=== PATIENT | female | born 1940 | race Caucasian/White ===

== ENCOUNTER 2018-04-02 14:03 | Emergency (ER) | payer MEDICARE, SELFPAY ==
[2018-04-02] VITALS (7 sets, daily range): BP systolic 144–218; BP diastolic 61–103; PULSE 60–68; RESP 11–20; TEMP 36.7; O2SAT 98–100; BMI 23.8
--- NOTE | 2018-04-02 14:12 | DI.RAD.S_ITS ---
PROCEDURE: XR CHEST 1V INDICATIONS: Pre syncopal episode TECHNIQUE: One view of the chest was acquired. COMPARISON: [facility], CR, XR CHEST 2 VIEWS, 06/07/2017, 10:47. FINDINGS: Surgical changes and devices: None. Lungs and pleura: No pleural effusions or pneumothorax. Lungs are clear. Mediastinum: Mediastinal contours appear normal. Heart size is normal. Bones and chest wall: No suspicious bony lesions. Overlying soft tissues appear unremarkable. IMPRESSION: No acute cardiopulmonary findings. Dictated by: Tamara Kuhn M.D. on 04/02/2018 at 14:45 Approved by: Tamara Kuhn M.D. on 04/02/2018 at 14:45
--- NOTE | 2018-04-02 14:13 | DI.CT.S_ITS ---
PROCEDURE: CT HEAD/BRAIN WO CON INDICATIONS: Pre syncopal episode TECHNIQUE: Noncontrast 4.5 mm thick angled axial sections acquired from the foramen magnum to the vertex, with coronal and sagittal reformats. For radiation dose reduction, the following was used: automated exposure control, adjustment of mA and/or kV according to patient size. COMPARISON: [facility], CT, CT ANGIO BRAIN AND NECK, 11/30/2016, 11:31. [facility], CT, BRAIN (TPA), 06/08/2016, 19:54. FINDINGS: Image quality: Excellent. CSF spaces: Basal cisterns are patent. No extra-axial fluid collections. The ventricles are symmetric in size and shape. Brain: No intracranial bleeds or masses. There is cerebral volume loss for age, with resultant ventricular and sulcal prominence. There are periventricular and deep white matter chronic small vessel ischemic changes. There is intracranial internal carotid artery atherosclerosis. Skull and face: Calvarium and visualized facial bones appear intact, without suspicious lesions. Sinuses: Visualized sinuses and mastoids are clear. IMPRESSION: 1. No acute intracranial findings. 2. Findings likely associated with chronic microvascular ischemic changes. Dictated by: Tamara Kuhn M.D. on 04/02/2018 at 15:33 Approved by: Tamara Kuhn M.D. on 04/02/2018 at 15:38
[2018-04-02 14:15] LABS: Add Manual Diff / Slide Review NO; Eosinophils Percent Auto 1.5 % (2-4); Hematocrit 42.6 % (36-46); Hemoglobin 14.2 g/dL (12.0-16.0); Mean Corpuscular HGB Conc 33.4 % (30-36); Mean Corpuscular Hemoglobin 29.6 PG (26-34); Mean Corpuscular Volume 88.6 fL (80-100); Monocytes Percent Auto 6.8 % (3-14); Neutrophils Absolute Auto 3600 /uL (3000-5900); Neutrophils Percent Auto 57.7 % (50-75); Platelet Count 236 X10^3/uL (150-400); Red Blood Cell Count 4.81 X10^6/uL (4.0-5.2); Red Cell Distribution Width 14.7 % (11.6-14.8); White Blood Cell Count 6.2 X10^3/uL (4.5-11.0)
--- NOTE | 2018-04-02 14:30 | ED.SYNCOPE ---
HPI - Syncope <ADRIANA Baez - Last Filed: 04/02/18 22:23> General Chief Complaint: Syncope Stated Complaint: Nausea Time Seen by Provider: 04/02/18 14:05 Source: patient Mode of arrival: EMS Limitations: no limitations History of Present Illness HPI narrative: 77-year-old female with history of hypertension is a nonsmoker here for complaint of having a presyncopal episode earlier today. She states that she went into the kitchen to start making lunch when she felt lightheaded and she had to lay down on the floor and she fell as she was going to pass out. She denies any loss of consciousness. She denies any headache no chest pain no shortness of breath. She states that she has been eating and drinking well with no nausea or vomiting until she had the lightheaded incident. She denies any urinary symptoms. She denies any recent illnesses. She also states that she had a strain sensation where she felt like there was squeezing to her bilateral lower extremities. She denies any neurological deficits. She states that the squeezing sensation has come and went a few times since her pre syncopal episode. She denies any discomfort anywhere. complaint: felt faint Related Data Home Medications Medication Instructions Recorded Confirmed atorvastatin 10 mg PO DAILY 04/02/18 04/02/18 cholestyramine-aspartame 4 g PO BID 04/02/18 04/02/18 [Prevalite] losartan 25 mg PO DAILY 04/02/18 04/02/18 metoprolol tartrate 25 mg PO BID 04/02/18 04/02/18 Allergies Allergy/AdvReac Type Severity Reaction Status Date / Time No Known Drug Allergies Allergy Verified 04/02/18 14:50 Review of Systems <ADRIANA Baez - Last Filed: 04/02/18 22:23> Constitutional Denies chills, Denies fever(s), Denies lethargy and Denies weakness Eyes Denies change in vision, Denies eye discharge, Denies irritation and Denies loss of vision ENT Ears, Nose, Mouth, and Throat: Denies change in voice, Denies neck pain and Denies sore throat Cardiovascular Denies chest pain, Denies irregular heart rhythm, Denies lightheadedness, Denies palpitations, Denies dyspnea, Denies dyspnea on exertion and Denies orthopnea Comments: Presyncope Respiratory Denies cough, Denies dyspnea, Denies dyspnea on exertion and Denies wheezing Gastrointestinal Gastrointestinal: Denies abdominal pain, Denies change in bowel habits, Denies diarrhea, Denies nausea and Denies vomiting Genitourinary Denies hematuria, Denies flank pain, Denies urinary incontinence and Denies urinary urgency Musculoskeletal Denies neck pain Comments: [place] sensation of squeezing to bilateral lower extremities Integumentary/Breasts Denies pruritus, Denies erythema, Denies rash and Denies wounds Neurologic Denies confusion, Denies loss of vision and Denies weakness Psychiatric Denies anxiety, Denies confusion, Denies depression, Denies homicidal ideation and Denies suicidal ideation Endocrine Denies palpitations Hematologic/Lymphatic Denies easy bruising Allergic/Immunologic Denies wheezing Exam <ADRIANA Baez - Last Filed: 04/02/18 22:23> Initial Vital Signs Initial Vital Signs: Vital Signs Temperature 98.1 F 04/02/18 14:18 Pulse Rate 68 04/02/18 14:18 Respiratory Rate 20 04/02/18 14:18 Blood Pressure 218/103 H 04/02/18 14:18 Pulse Oximetry 100 04/02/18 14:18 Const General: cooperative and well developed Nutritional Appearance: well nourished Orientation: alert, awake, oriented x3 and not confused HENDC Mouth: oral mucosae normal and moist mucous membranes Eyes Conjunctivae: conjunctivae normal Sclera: sclerae normal Pupils: PERRL EOM: EOM intact bilaterally Resp Effort & Inspection: normal respiratory effort, able to speak in complete sentences, no respiratory distress and no use of accessory muscles Auscultation: clear to auscultation bilaterally, no rales, no rhonchi and no wheezes Cardio Rate: regular rate Rhythm: regular rhythm Heart Sounds: no click, no gallops, no murmurs and no rubs Pulses: normal peripheral pulses GI Inspection: non-distended Palpation: soft, no hepatosplenomegaly, No guarding, No pulsatile mass and No tender Auscultation: normal bowel sounds Skin General: no rashes or lesions noted, No jaundice and No petechiae Neuro General: alert, oriented x3, gait normal and no focal motor deficits Speech: speech normal <Hudson Ware DO - Last Filed: 04/03/18 07:30> Initial Vital Signs Initial Vital Signs: Vital Signs Temperature 98.1 F 04/02/18 14:18 Pulse Rate 68 04/02/18 14:18 Respiratory Rate 20 04/02/18 14:18 Blood Pressure 218/103 H 04/02/18 14:18 Pulse Oximetry 100 04/02/18 14:18 Course <ADRIANA Baez - Last Filed: 04/02/18 22:23> Orders Ordered: Discontinued Medications Sodium Chloride (Normal Saline 0.9%) 1,000 mls @ 150 mls/hr IV CONT SHOSHANA Last Admin: 04/02/18 14:44 Dose: 150 mls/hr Piperacillin/Tazobactam/Dextrose (Zosyn) 3.375 gm in 50 mls @ 100 mls/hr IV NOW ONE Stop: 04/02/18 16:55 Ondansetron HCl (Zofran) 4 mg IV NOW ONE Stop: 04/02/18 14:31 Last Admin: 04/02/18 14:44 Dose: 4 mg Vital Signs - 8 hr 04/02/18 15:28 04/02/18 16:00 04/02/18 16:30 Temperature 98.1 F Pulse Rate 62 60 61 Respiratory Rate 20 11 L 15 Blood Pressure Blood Pressure [Left Arm] 180/93 H 164/76 H 149/61 H Pulse Oximetry 99 99 100 04/02/18 17:00 04/02/18 17:30 04/02/18 18:13 Temperature Pulse Rate 60 61 65 Respiratory Rate 13 13 15 Blood Pressure 149/64 H Blood Pressure [Left Arm] 145/68 H 144/79 H Pulse Oximetry 98 100 98 <Hudson Ware DO - Last Filed: 04/03/18 07:30> Orders Ordered: Discontinued Medications Sodium Chloride (Normal Saline 0.9%) 1,000 mls @ 150 mls/hr IV CONT SHOSHANA Last Admin: 04/02/18 14:44 Dose: 150 mls/hr Piperacillin/Tazobactam/Dextrose (Zosyn) 3.375 gm in 50 mls @ 100 mls/hr IV NOW ONE Stop: 04/02/18 16:55 Ondansetron HCl (Zofran) 4 mg IV NOW ONE Stop: 04/02/18 14:31 Last Admin: 04/02/18 14:44 Dose: 4 mg Vital Signs - 8 hr 04/02/18 15:28 04/02/18 16:00 04/02/18 16:30 Temperature 98.1 F Pulse Rate 62 60 61 Respiratory Rate 20 11 L 15 Blood Pressure Blood Pressure [Left Arm] 180/93 H 164/76 H 149/61 H Pulse Oximetry 99 99 100 04/02/18 17:00 04/02/18 17:30 04/02/18 18:13 Temperature Pulse Rate 60 61 65 Respiratory Rate 13 13 15 Blood Pressure 149/64 H Blood Pressure [Left Arm] 145/68 H 144/79 H Pulse Oximetry 98 100 98 MDM - Syncope <ADRIANA Baez - Last Filed: 04/02/18 22:23> Lab Data Result diagrams: 04/02/18 13:55 04/02/18 13:55 Lab Results 04/02/18 04/02/18 04/02/18 Range/Units 12:55 13:55 13:55 WBC 6.2 (4.5-11.0) X10^3/uL RBC 4.81 (4.0-5.2) X10^6/uL Hgb 14.2 (12.0-16.0) g/dL Hct 42.6 (36-46) % MCV 88.6 (80-100) fL MCH 29.6 (26-34) PG MCHC 33.4 (30-36) % RDW 14.7 (11.6-14.8) % Plt Count 236 (150-400) X10^3/uL Neut % (Auto) 57.7 (50-75) % Lymph % (Auto) 33.0 (25-40) % Ponce % (Auto) 6.8 (3-14) % Eos % (Auto) 1.5 L (2-4) % Baso % (Auto) 1.0 (0-2) % Neut # (Auto) 3600 (3456-2351) /uL PT (10.1-12.7) SECONDS INR (0.9-1.3) Sodium 140 (137-145) mmol/L Potassium 4.5 (3.4-5.1) mmol/L Chloride 101 (98-107) mmol/L Carbon Dioxide 28 (22-32) mmol/L BUN 19 H (7-17) mg/dL Creatinine 1.00 (0.52-1.04) mg/dL Estimated GFR 53.5 L (>60) mL/min BUN/Creatinine Ratio 19.0 (6-22) Glucose 98 (80-110) mg/dL Calcium 9.9 (8.4-10.2) mg/dL Total Bilirubin 0.9 (0.2-1.3) mg/dL AST 38 H (14-36) IU/L ALT 48 (9-52) IU/L Alkaline Phosphatase 90 (38-126) U/L Total Creatine Kinase (30-135) U/L CK-MB (CK-2) CK-MB (CK-2) Rel Index Troponin I (0.01-0.034) ng/mL B-Natriuretic Peptide 80.0 (<100) Total Protein 7.4 (6.3-8.2) g/dL Albumin 4.5 (3.5-5.0) g/dL Globulin 2.9 (1.7-4.1) g/dL Albumin/Globulin Ratio 1.6 (1.0-2.8) 04/02/18 04/02/18 04/02/18 Range/Units 14:25 14:25 16:40 WBC (4.5-11.0) X10^3/uL RBC (4.0-5.2) X10^6/uL Hgb (12.0-16.0) g/dL Hct (36-46) % MCV (80-100) fL MCH (26-34) PG MCHC (30-36) % RDW (11.6-14.8) % Plt Count (150-400) X10^3/uL Neut % (Auto) (50-75) % Lymph % (Auto) (25-40) % Ponce % (Auto) (3-14) % Eos % (Auto) (2-4) % Baso % (Auto) (0-2) % Neut # (Auto) (1707-6666) /uL PT 10.6 (10.1-12.7) SECONDS INR 1.0 (0.9-1.3) Sodium (137-145) mmol/L Potassium (3.4-5.1) mmol/L Chloride (98-107) mmol/L Carbon Dioxide (22-32) mmol/L BUN (7-17) mg/dL Creatinine (0.52-1.04) mg/dL Estimated GFR (>60) mL/min BUN/Creatinine Ratio (6-22) Glucose (80-110) mg/dL Calcium (8.4-10.2) mg/dL Total Bilirubin (0.2-1.3) mg/dL AST (14-36) IU/L ALT (9-52) IU/L Alkaline Phosphatase (38-126) U/L Total Creatine Kinase 60 (30-135) U/L CK-MB (CK-2) TNP CK-MB (CK-2) Rel Index TNP Troponin I < 0.012 < 0.012 (0.01-0.034) ng/mL B-Natriuretic Peptide (<100) Total Protein (6.3-8.2) g/dL Albumin (3.5-5.0) g/dL Globulin (1.7-4.1) g/dL Albumin/Globulin Ratio (1.0-2.8) Point of Care Testing Glucose POC 89 Urine Dip Bedside Urine Glucose Negative Bedside Urine Bilirubin - Negative Bedside Urine Ketone - Negative Urine Specific [place] 1.015 Bedside Urine Occult Blood - Negative Bedside Urine pH 6.5 Bedside Urine Protein - Negative Bedside Urine Urobilinogen 1+ 2mg Bedside Urine Nitrite - Negative Bedside Urine Leukocytes - Negative Esterase Imaging Data Chest x-ray: Radiologist's impression: [address] [address] XRay Report Signed Patient: Leatha Capellan R#: [id number] : 9Acct:[id number] Age/Sex: 77 / FDate of Service: 04/02/18 Loc: ED Accession Number: [id number] Procedure: XR chest 1V Ordering Provider: Wallace Mcqueen PROCEDURE: XR CHEST 1V INDICATIONS: Pre syncopal episode TECHNIQUE: One view of the chest was acquired. COMPARISON: [facility], , XR CHEST 2 VIEWS, 06/07/2017, 10:47. FINDINGS: Surgical changes and devices: None. Lungs and pleura: No pleural effusions or pneumothorax. Lungs are clear. Mediastinum: Mediastinal contours appear normal. Heart size is normal. Bones and chest wall: No suspicious bony lesions. Overlying soft tissues appear unremarkable. IMPRESSION: No acute cardiopulmonary findings. Dictated by: Tamara Kuhn M.D. on 04/02/2018 at 14:45 Approved by: Tamara Kuhn M.D. on 04/02/2018 at 14:45 CT scan - head: Radiologist's impression: [address] [id number] [address] Scan Report Signed Patient: Leatha Capellan HMR#: [id number] : 9Acct:[id number] Age/Sex: 77 / FDate of Service: 04/02/18 Loc: ED Accession Number: [id number] Procedure: CT head/brain wo con Ordering Provider: Wallace Mcqueen PROCEDURE: CT HEAD/BRAIN WO CON INDICATIONS: Pre syncopal episode TECHNIQUE: Noncontrast 4.5 mm thick angled axial sections acquired from the foramen magnum to the vertex, with coronal and sagittal reformats. For radiation dose reduction, the following was used: automated exposure control, adjustment of mA and/or kV according to patient size. COMPARISON: [facility], CT, CT ANGIO BRAIN AND NECK, 11/30/2016, 11:31. [facility], CT, BRAIN (TPA), 06/08/2016, 19:54. FINDINGS: Image quality: Excellent. CSF spaces: Basal cisterns are patent. No extra-axial fluid collections. The ventricles are symmetric in size and shape. Brain: No intracranial bleeds or masses. There is cerebral volume loss for age, with resultant ventricular and sulcal prominence. There are periventricular and deep white matter chronic small vessel ischemic changes. There is intracranial internal carotid artery atherosclerosis. Skull and face: Calvarium and visualized facial bones appear intact, without suspicious lesions. Sinuses: Visualized sinuses and mastoids are clear. IMPRESSION: 1. No acute intracranial findings. 2. Findings likely associated with chronic microvascular ischemic changes. Dictated by: Tamara Kuhn M.D. on 04/02/2018 at 15:33 Approved by: Tamara Kuhn M.D. on 04/02/2018 at 15:38 ECG Data Interpretation: EKG shows normal sinus rhythm with no ST elevation or depression. No ectopy. Ventricular rate is 64. Pr interval 153. QRS duration of 89. QT of 406. MDM Narrative Medical decision making narrative: CT of the head was obtained was negative for any acute findings. Chest x-ray was negative for any acute findings. EKG shows normal sinus rhythm with no set ST elevation or depression. No ectopy. CBC and Chem panel were obtained were unremarkable. Urinalysis was negative for urinary tract infection. Two sets of cardiac enzymes were obtained and were unremarkable. Her symptoms resolved while in the emergency room she was able ambulate to the restroom and back with no complications. Differential between vasovagal syncopal event vs brief episode of spike and hypertension. Vital signs normalized the and were stable. Will have patient follow up with primary care provider in the next couple days for re-evaluation. For any return of symptoms worsening symptoms return to the emergency room. She is encouraged to drink adequate fluids and well balanced diet. <Hudson Ware, DO - Last Filed: 04/03/18 07:30> Lab Data Lab Results 04/02/18 04/02/18 04/02/18 Range/Units 12:55 13:55 13:55 WBC 6.2 (4.5-11.0) X10^3/uL RBC 4.81 (4.0-5.2) X10^6/uL Hgb 14.2 (12.0-16.0) g/dL Hct 42.6 (36-46) % MCV 88.6 (80-100) fL MCH 29.6 (26-34) PG MCHC 33.4 (30-36) % RDW 14.7 (11.6-14.8) % Plt Count 236 (150-400) X10^3/uL Neut % (Auto) 57.7 (50-75) % Lymph % (Auto) 33.0 (25-40) % Ponce % (Auto) 6.8 (3-14) % Eos % (Auto) 1.5 L (2-4) % Baso % (Auto) 1.0 (0-2) % Neut # (Auto) 3600 (1108-3746) /uL PT (10.1-12.7) SECONDS INR (0.9-1.3) Sodium 140 (137-145) mmol/L Potassium 4.5 (3.4-5.1) mmol/L Chloride 101 (98-107) mmol/L Carbon Dioxide 28 (22-32) mmol/L BUN 19 H (7-17) mg/dL Creatinine 1.00 (0.52-1.04) mg/dL Estimated GFR 53.5 L (>60) mL/min BUN/Creatinine Ratio 19.0 (6-22) Glucose 98 (80-110) mg/dL Calcium 9.9 (8.4-10.2) mg/dL Total Bilirubin 0.9 (0.2-1.3) mg/dL AST 38 H (14-36) IU/L ALT 48 (9-52) IU/L Alkaline Phosphatase 90 (38-126) U/L Total Creatine Kinase (30-135) U/L CK-MB (CK-2) CK-MB (CK-2) Rel Index Troponin I (0.01-0.034) ng/mL B-Natriuretic Peptide 80.0 (<100) Total Protein 7.4 (6.3-8.2) g/dL Albumin 4.5 (3.5-5.0) g/dL Globulin 2.9 (1.7-4.1) g/dL Albumin/Globulin Ratio 1.6 (1.0-2.8) 04/02/18 04/02/18 04/02/18 Range/Units 14:25 14:25 16:40 WBC (4.5-11.0) X10^3/uL RBC (4.0-5.2) X10^6/uL Hgb (12.0-16.0) g/dL Hct (36-46) % MCV (80-100) fL MCH (26-34) PG MCHC (30-36) % RDW (11.6-14.8) % Plt Count (150-400) X10^3/uL Neut % (Auto) (50-75) % Lymph % (Auto) (25-40) % Ponce % (Auto) (3-14) % Eos % (Auto) (2-4) % Baso % (Auto) (0-2) % Neut # (Auto) (2027-4643) /uL PT 10.6 (10.1-12.7) SECONDS INR 1.0 (0.9-1.3) Sodium (137-145) mmol/L Potassium (3.4-5.1) mmol/L Chloride (98-107) mmol/L Carbon Dioxide (22-32) mmol/L BUN (7-17) mg/dL Creatinine (0.52-1.04) mg/dL Estimated GFR (>60) mL/min BUN/Creatinine Ratio (6-22) Glucose (80-110) mg/dL Calcium (8.4-10.2) mg/dL Total Bilirubin (0.2-1.3) mg/dL AST (14-36) IU/L ALT (9-52) IU/L Alkaline Phosphatase (38-126) U/L Total Creatine Kinase 60 (30-135) U/L CK-MB (CK-2) TNP CK-MB (CK-2) Rel Index TNP Troponin I < 0.012 < 0.012 (0.01-0.034) ng/mL B-Natriuretic Peptide (<100) Total Protein (6.3-8.2) g/dL Albumin (3.5-5.0) g/dL Globulin (1.7-4.1) g/dL Albumin/Globulin Ratio (1.0-2.8) Point of Care Testing Glucose POC 89 Urine Dip Bedside Urine Glucose Negative Bedside Urine Bilirubin - Negative Bedside Urine Ketone - Negative Urine Specific [place] 1.015 Bedside Urine Occult Blood - Negative Bedside Urine pH 6.5 Bedside Urine Protein - Negative Bedside Urine Urobilinogen 1+ 2mg Bedside Urine Nitrite - Negative Bedside Urine Leukocytes - Negative Esterase Discharge Plan Departure Patient Disposition: Home Clinical Impression: Pre-syncope Discharge Date/Time: 04/02/18 18:14 Interventions: ED Discharge Assessment Last Done: 04/02/18 18:13 Instructions: DI for Syncope in Adults (Fainting) Activity Restrictions/Additional Instructions: Laboratory results and imaging today were unremarkable. Differential between elevated blood pressure and vasovagal response causing her pre syncopal event today. Anterior drinking plenty of fluids and adequate diet. Follow up with her primary care provider the next couple days for re-evaluation. For any return of symptoms or worsening symptoms return to the emergency room. Prescriptions: No Action atorvastatin 10 mg Tablet 10 mg PO DAILY RF: 0 losartan 25 mg Tablet 25 mg PO DAILY RF: 0 cholestyramine-aspartame [Prevalite] 4 gram Powder In Packet 4 g PO BID RF: 0 metoprolol tartrate 25 mg Tablet 25 mg PO BID RF: 0 Referrals: [facility] [Provider Group] <Hudson Ware DO - Last Filed: 04/03/18 07:30> Cosign ED Attending Yonatan Attestation: I was available for consultation during this patient's emergency department encounter
[2018-04-02] MEDS: SODIUM CHLORIDE 0.9% 1,000 ML 150 ML IV (14:44)
[2018-04-02] MEDS: ONDANSETRON 4 MG/2 ML INJ IV (14:44)
[2018-04-02 14:51] LABS: Prothrombin Time 10.6 SECONDS (10.1-12.7)
--- NOTE | 2018-04-02 14:51 | ED_ITS ---
HPI - Syncope <ADRIANA Baez - Last Filed: 04/02/18 22:23> General Chief Complaint: Syncope Stated Complaint: Nausea Time Seen by Provider: 04/02/18 14:05 Source: patient Mode of arrival: EMS Limitations: no limitations History of Present Illness HPI narrative: 77-year-old female with history of hypertension is a nonsmoker here for complaint of having a presyncopal episode earlier today. She states that she went into the kitchen to start making lunch when she felt lightheaded and she had to lay down on the floor and she fell as she was going to pass out. She denies any loss of consciousness. She denies any headache no chest pain no shortness of breath. She states that she has been eating and drinking well with no nausea or vomiting until she had the lightheaded incident. She denies any urinary symptoms. She denies any recent illnesses. She also states that she had a strain sensation where she felt like there was squeezing to her bilateral lower extremities. She denies any neurological deficits. She states that the squeezing sensation has come and went a few times since her pre syncopal episode. She denies any discomfort anywhere. complaint: felt faint Related Data Home Medications Medication Instructions Recorded Confirmed atorvastatin 10 mg PO DAILY 04/02/18 04/02/18 cholestyramine-aspartame 4 g PO BID 04/02/18 04/02/18 [Prevalite] losartan 25 mg PO DAILY 04/02/18 04/02/18 metoprolol tartrate 25 mg PO BID 04/02/18 04/02/18 Allergies Allergy/AdvReac Type Severity Reaction Status Date / Time No Known Drug Allergies Allergy Verified 04/02/18 14:50 Review of Systems <ADRIANA Baez - Last Filed: 04/02/18 22:23> Constitutional Denies chills, Denies fever(s), Denies lethargy and Denies weakness Eyes Denies change in vision, Denies eye discharge, Denies irritation and Denies loss of vision ENT Ears, Nose, Mouth, and Throat: Denies change in voice, Denies neck pain and Denies sore throat Cardiovascular Denies chest pain, Denies irregular heart rhythm, Denies lightheadedness, Denies palpitations, Denies dyspnea, Denies dyspnea on exertion and Denies orthopnea Comments: Presyncope Respiratory Denies cough, Denies dyspnea, Denies dyspnea on exertion and Denies wheezing Gastrointestinal Gastrointestinal: Denies abdominal pain, Denies change in bowel habits, Denies diarrhea, Denies nausea and Denies vomiting Genitourinary Denies hematuria, Denies flank pain, Denies urinary incontinence and Denies urinary urgency Musculoskeletal Denies neck pain Comments: [place] sensation of squeezing to bilateral lower extremities Integumentary/Breasts Denies pruritus, Denies erythema, Denies rash and Denies wounds Neurologic Denies confusion, Denies loss of vision and Denies weakness Psychiatric Denies anxiety, Denies confusion, Denies depression, Denies homicidal ideation and Denies suicidal ideation Endocrine Denies palpitations Hematologic/Lymphatic Denies easy bruising Allergic/Immunologic Denies wheezing Exam <ADRIANA Baez - Last Filed: 04/02/18 22:23> Initial Vital Signs Initial Vital Signs: Vital Signs Temperature 98.1 F 04/02/18 14:18 Pulse Rate 68 04/02/18 14:18 Respiratory Rate 20 04/02/18 14:18 Blood Pressure 218/103 H 04/02/18 14:18 Pulse Oximetry 100 04/02/18 14:18 Const General: cooperative and well developed Nutritional Appearance: well nourished Orientation: alert, awake, oriented x3 and not confused HENVA Mouth: oral mucosae normal and moist mucous membranes Eyes Conjunctivae: conjunctivae normal Sclera: sclerae normal Pupils: PERRL EOM: EOM intact bilaterally Resp Effort & Inspection: normal respiratory effort, able to speak in complete sentences, no respiratory distress and no use of accessory muscles Auscultation: clear to auscultation bilaterally, no rales, no rhonchi and no wheezes Cardio Rate: regular rate Rhythm: regular rhythm Heart Sounds: no click, no gallops, no murmurs and no rubs Pulses: normal peripheral pulses GI Inspection: non-distended Palpation: soft, no hepatosplenomegaly, No guarding, No pulsatile mass and No tender Auscultation: normal bowel sounds Skin General: no rashes or lesions noted, No jaundice and No petechiae Neuro General: alert, oriented x3, gait normal and no focal motor deficits Speech: speech normal <Hudson Ware DO - Last Filed: 04/03/18 07:30> Initial Vital Signs Initial Vital Signs: Vital Signs Temperature 98.1 F 04/02/18 14:18 Pulse Rate 68 04/02/18 14:18 Respiratory Rate 20 04/02/18 14:18 Blood Pressure 218/103 H 04/02/18 14:18 Pulse Oximetry 100 04/02/18 14:18 Course <ADRIANA Baez - Last Filed: 04/02/18 22:23> Orders Ordered: Discontinued Medications Sodium Chloride (Normal Saline 0.9%) 1,000 mls @ 150 mls/hr IV CONT SHOSHANA Last Admin: 04/02/18 14:44 Dose: 150 mls/hr Piperacillin/Tazobactam/Dextrose (Zosyn) 3.375 gm in 50 mls @ 100 mls/hr IV NOW ONE Stop: 04/02/18 16:55 Ondansetron HCl (Zofran) 4 mg IV NOW ONE Stop: 04/02/18 14:31 Last Admin: 04/02/18 14:44 Dose: 4 mg Vital Signs - 8 hr 04/02/18 15:28 04/02/18 16:00 04/02/18 16:30 Temperature 98.1 F Pulse Rate 62 60 61 Respiratory Rate 20 11 L 15 Blood Pressure Blood Pressure [Left Arm] 180/93 H 164/76 H 149/61 H Pulse Oximetry 99 99 100 04/02/18 17:00 04/02/18 17:30 04/02/18 18:13 Temperature Pulse Rate 60 61 65 Respiratory Rate 13 13 15 Blood Pressure 149/64 H Blood Pressure [Left Arm] 145/68 H 144/79 H Pulse Oximetry 98 100 98 <Hudson Ware DO - Last Filed: 04/03/18 07:30> Orders Ordered: Discontinued Medications Sodium Chloride (Normal Saline 0.9%) 1,000 mls @ 150 mls/hr IV CONT SHOSHANA Last Admin: 04/02/18 14:44 Dose: 150 mls/hr Piperacillin/Tazobactam/Dextrose (Zosyn) 3.375 gm in 50 mls @ 100 mls/hr IV NOW ONE Stop: 04/02/18 16:55 Ondansetron HCl (Zofran) 4 mg IV NOW ONE Stop: 04/02/18 14:31 Last Admin: 04/02/18 14:44 Dose: 4 mg Vital Signs - 8 hr 04/02/18 15:28 04/02/18 16:00 04/02/18 16:30 Temperature 98.1 F Pulse Rate 62 60 61 Respiratory Rate 20 11 L 15 Blood Pressure Blood Pressure [Left Arm] 180/93 H 164/76 H 149/61 H Pulse Oximetry 99 99 100 04/02/18 17:00 04/02/18 17:30 04/02/18 18:13 Temperature Pulse Rate 60 61 65 Respiratory Rate 13 13 15 Blood Pressure 149/64 H Blood Pressure [Left Arm] 145/68 H 144/79 H Pulse Oximetry 98 100 98 MDM - Syncope <ADRIANA Baez - Last Filed: 04/02/18 22:23> Lab Data Result diagrams: 04/02/18 13:55 04/02/18 13:55 Lab Results 04/02/18 04/02/18 04/02/18 Range/Units 12:55 13:55 13:55 WBC 6.2 (4.5-11.0) X10^3/uL RBC 4.81 (4.0-5.2) X10^6/uL Hgb 14.2 (12.0-16.0) g/dL Hct 42.6 (36-46) % MCV 88.6 (80-100) fL MCH 29.6 (26-34) PG MCHC 33.4 (30-36) % RDW 14.7 (11.6-14.8) % Plt Count 236 (150-400) X10^3/uL Neut % (Auto) 57.7 (50-75) % Lymph % (Auto) 33.0 (25-40) % [place] % (Auto) 6.8 (3-14) % Eos % (Auto) 1.5 L (2-4) % Baso % (Auto) 1.0 (0-2) % Neut # (Auto) 3600 (8197-5224) /uL PT (10.1-12.7) SECONDS INR (0.9-1.3) Sodium 140 (137-145) mmol/L Potassium 4.5 (3.4-5.1) mmol/L Chloride 101 (98-107) mmol/L Carbon Dioxide 28 (22-32) mmol/L BUN 19 H (7-17) mg/dL Creatinine 1.00 (0.52-1.04) mg/dL Estimated GFR 53.5 L (>60) mL/min BUN/Creatinine Ratio 19.0 (6-22) Glucose 98 (80-110) mg/dL Calcium 9.9 (8.4-10.2) mg/dL Total Bilirubin 0.9 (0.2-1.3) mg/dL AST 38 H (14-36) IU/L ALT 48 (9-52) IU/L Alkaline Phosphatase 90 (38-126) U/L Total Creatine Kinase (30-135) U/L CK-MB (CK-2) CK-MB (CK-2) Rel Index Troponin I (0.01-0.034) ng/mL B-Natriuretic Peptide 80.0 (<100) Total Protein 7.4 (6.3-8.2) g/dL Albumin 4.5 (3.5-5.0) g/dL Globulin 2.9 (1.7-4.1) g/dL Albumin/Globulin Ratio 1.6 (1.0-2.8) 04/02/18 04/02/18 04/02/18 Range/Units 14:25 14:25 16:40 WBC (4.5-11.0) X10^3/uL RBC (4.0-5.2) X10^6/uL Hgb (12.0-16.0) g/dL Hct (36-46) % MCV (80-100) fL MCH (26-34) PG MCHC (30-36) % RDW (11.6-14.8) % Plt Count (150-400) X10^3/uL Neut % (Auto) (50-75) % Lymph % (Auto) (25-40) % [place] % (Auto) (3-14) % Eos % (Auto) (2-4) % Baso % (Auto) (0-2) % Neut # (Auto) (4891-2165) /uL PT 10.6 (10.1-12.7) SECONDS INR 1.0 (0.9-1.3) Sodium (137-145) mmol/L Potassium (3.4-5.1) mmol/L Chloride (98-107) mmol/L Carbon Dioxide (22-32) mmol/L BUN (7-17) mg/dL Creatinine (0.52-1.04) mg/dL Estimated GFR (>60) mL/min BUN/Creatinine Ratio (6-22) Glucose (80-110) mg/dL Calcium (8.4-10.2) mg/dL Total Bilirubin (0.2-1.3) mg/dL AST (14-36) IU/L ALT (9-52) IU/L Alkaline Phosphatase (38-126) U/L Total Creatine Kinase 60 (30-135) U/L CK-MB (CK-2) TNP CK-MB (CK-2) Rel Index TNP Troponin I < 0.012 < 0.012 (0.01-0.034) ng/mL B-Natriuretic Peptide (<100) Total Protein (6.3-8.2) g/dL Albumin (3.5-5.0) g/dL Globulin (1.7-4.1) g/dL Albumin/Globulin Ratio (1.0-2.8) Point of Care Testing Glucose POC 89 Urine Dip Bedside Urine Glucose Negative Bedside Urine Bilirubin - Negative Bedside Urine Ketone - Negative Urine Specific [place] 1.015 Bedside Urine Occult Blood - Negative Bedside Urine pH 6.5 Bedside Urine Protein - Negative Bedside Urine Urobilinogen 1+ 2mg Bedside Urine Nitrite - Negative Bedside Urine Leukocytes - Negative Esterase Imaging Data Chest x-ray: Radiologist's impression: [address] [address] XRay Report Signed Patient: Leatha Capellan R#: [id number] : 9Acct:[id number] Age/Sex: 77 / FDate of Service: 04/02/18 Loc: ED Accession Number: [id number] Procedure: XR chest 1V Ordering Provider: Wallace Mcqueen PROCEDURE: XR CHEST 1V INDICATIONS: Pre syncopal episode TECHNIQUE: One view of the chest was acquired. COMPARISON: [facility], , XR CHEST 2 VIEWS, 06/07/2017, 10:47. FINDINGS: Surgical changes and devices: None. Lungs and pleura: No pleural effusions or pneumothorax. Lungs are clear. Mediastinum: Mediastinal contours appear normal. Heart size is normal. Bones and chest wall: No suspicious bony lesions. Overlying soft tissues appear unremarkable. IMPRESSION: No acute cardiopulmonary findings. Dictated by: Tamara Kuhn M.D. on 04/02/2018 at 14:45 Approved by: Tamara Kuhn M.D. on 04/02/2018 at 14:45 CT scan - head: Radiologist's impression: [address] [address] [address] Scan Report Signed Patient: Leatha Capellan HMR#: [id number] : 9Acct:[id number] Age/Sex: 77 / FDate of Service: 04/02/18 Loc: ED Accession Number: [id number] Procedure: CT head/brain wo con Ordering Provider: Wallace Mcqueen PROCEDURE: CT HEAD/BRAIN WO CON INDICATIONS: Pre syncopal episode TECHNIQUE: Noncontrast 4.5 mm thick angled axial sections acquired from the foramen magnum to the vertex, with coronal and sagittal reformats. For radiation dose reduction, the following was used: automated exposure control, adjustment of mA and/or kV according to patient size. COMPARISON: [facility], CT, CT ANGIO BRAIN AND NECK, 11/30/2016, 11: 31. [facility], CT, BRAIN ([facility]), 06/08/2016, 19:54. FINDINGS: Image quality: Excellent. CSF spaces: Basal cisterns are patent. No extra-axial fluid collections. The ventricles are symmetric in size and shape. Brain: No intracranial bleeds or masses. There is cerebral volume loss for age , with resultant ventricular and sulcal prominence. There are periventricular and deep white matter chronic small vessel ischemic changes. There is intracranial internal carotid artery atherosclerosis. Skull and face: Calvarium and visualized facial bones appear intact, without suspicious lesions. Sinuses: Visualized sinuses and mastoids are clear. IMPRESSION: 1. No acute intracranial findings. 2. Findings likely associated with chronic microvascular ischemic changes. Dictated by: Tamara Kuhn M.D. on 04/02/2018 at 15:33 Approved by: Tamara Kuhn M.D. on 04/02/2018 at 15:38 ECG Data Interpretation: EKG shows normal sinus rhythm with no ST elevation or depression. No ectopy. Ventricular rate is 64. Pr interval 153. QRS duration of 89. QT of 406. MDM Narrative Medical decision making narrative: CT of the head was obtained was negative for any acute findings. Chest x-ray was negative for any acute findings. EKG shows normal sinus rhythm with no set ST elevation or depression. No ectopy. CBC and Chem panel were obtained were unremarkable. Urinalysis was negative for urinary tract infection. Two sets of cardiac enzymes were obtained and were unremarkable. Her symptoms resolved while in the emergency room she was able ambulate to the restroom and back with no complications. Differential between vasovagal syncopal event vs brief episode of spike and hypertension. Vital signs normalized the and were stable. Will have patient follow up with primary care provider in the next couple days for re-evaluation. For any return of symptoms worsening symptoms return to the emergency room. She is encouraged to drink adequate fluids and well balanced diet. <Hudson Ware, DO - Last Filed: 04/03/18 07:30> Lab Data Lab Results 04/02/18 04/02/18 04/02/18 Range/Units 12:55 13:55 13:55 WBC 6.2 (4.5-11.0) X10^3/uL RBC 4.81 (4.0-5.2) X10^6/uL Hgb 14.2 (12.0-16.0) g/dL Hct 42.6 (36-46) % MCV 88.6 (80-100) fL MCH 29.6 (26-34) PG MCHC 33.4 (30-36) % RDW 14.7 (11.6-14.8) % Plt Count 236 (150-400) X10^3/uL Neut % (Auto) 57.7 (50-75) % Lymph % (Auto) 33.0 (25-40) % [place] % (Auto) 6.8 (3-14) % Eos % (Auto) 1.5 L (2-4) % Baso % (Auto) 1.0 (0-2) % Neut # (Auto) 3600 (9356-1905) /uL PT (10.1-12.7) SECONDS INR (0.9-1.3) Sodium 140 (137-145) mmol/L Potassium 4.5 (3.4-5.1) mmol/L Chloride 101 (98-107) mmol/L Carbon Dioxide 28 (22-32) mmol/L BUN 19 H (7-17) mg/dL Creatinine 1.00 (0.52-1.04) mg/dL Estimated GFR 53.5 L (>60) mL/min BUN/Creatinine Ratio 19.0 (6-22) Glucose 98 (80-110) mg/dL Calcium 9.9 (8.4-10.2) mg/dL Total Bilirubin 0.9 (0.2-1.3) mg/dL AST 38 H (14-36) IU/L ALT 48 (9-52) IU/L Alkaline Phosphatase 90 (38-126) U/L Total Creatine Kinase (30-135) U/L CK-MB (CK-2) CK-MB (CK-2) Rel Index Troponin I (0.01-0.034) ng/mL B-Natriuretic Peptide 80.0 (<100) Total Protein 7.4 (6.3-8.2) g/dL Albumin 4.5 (3.5-5.0) g/dL Globulin 2.9 (1.7-4.1) g/dL Albumin/Globulin Ratio 1.6 (1.0-2.8) 04/02/18 04/02/18 04/02/18 Range/Units 14:25 14:25 16:40 WBC (4.5-11.0) X10^3/uL RBC (4.0-5.2) X10^6/uL Hgb (12.0-16.0) g/dL Hct (36-46) % MCV (80-100) fL MCH (26-34) PG MCHC (30-36) % RDW (11.6-14.8) % Plt Count (150-400) X10^3/uL Neut % (Auto) (50-75) % Lymph % (Auto) (25-40) % [place] % (Auto) (3-14) % Eos % (Auto) (2-4) % Baso % (Auto) (0-2) % Neut # (Auto) (5396-8442) /uL PT 10.6 (10.1-12.7) SECONDS INR 1.0 (0.9-1.3) Sodium (137-145) mmol/L Potassium (3.4-5.1) mmol/L Chloride (98-107) mmol/L Carbon Dioxide (22-32) mmol/L BUN (7-17) mg/dL Creatinine (0.52-1.04) mg/dL Estimated GFR (>60) mL/min BUN/Creatinine Ratio (6-22) Glucose (80-110) mg/dL Calcium (8.4-10.2) mg/dL Total Bilirubin (0.2-1.3) mg/dL AST (14-36) IU/L ALT (9-52) IU/L Alkaline Phosphatase (38-126) U/L Total Creatine Kinase 60 (30-135) U/L CK-MB (CK-2) TNP CK-MB (CK-2) Rel Index TNP Troponin I < 0.012 < 0.012 (0.01-0.034) ng/mL B-Natriuretic Peptide (<100) Total Protein (6.3-8.2) g/dL Albumin (3.5-5.0) g/dL Globulin (1.7-4.1) g/dL Albumin/Globulin Ratio (1.0-2.8) Point of Care Testing Glucose POC 89 Urine Dip Bedside Urine Glucose Negative Bedside Urine Bilirubin - Negative Bedside Urine Ketone - Negative Urine Specific [place] 1.015 Bedside Urine Occult Blood - Negative Bedside Urine pH 6.5 Bedside Urine Protein - Negative Bedside Urine Urobilinogen 1+ 2mg Bedside Urine Nitrite - Negative Bedside Urine Leukocytes - Negative Esterase Discharge Plan Departure Patient Disposition: Home Clinical Impression: Pre-syncope Discharge Date/Time: 04/02/18 18:14 Interventions: ED Discharge Assessment Last Done: 04/02/18 18:13 Instructions: DI for Syncope in Adults (Fainting) Activity Restrictions/Additional Instructions: Laboratory results and imaging today were unremarkable. Differential between elevated blood pressure and vasovagal response causing her pre syncopal event today. Anterior drinking plenty of fluids and adequate diet. Follow up with her primary care provider the next couple days for re-evaluation. For any return of symptoms or worsening symptoms return to the emergency room. Prescriptions: No Action atorvastatin 10 mg Tablet 10 mg PO DAILY RF: 0 losartan 25 mg Tablet 25 mg PO DAILY RF: 0 cholestyramine-aspartame [Prevalite] 4 gram Powder In Packet 4 g PO BID RF: 0 metoprolol tartrate 25 mg Tablet 25 mg PO BID RF: 0 Referrals: [facility] [Provider Group] <Hudson Ware DO - Last Filed: 04/03/18 07:30> Cosign ED Attending Yonatan Attestation: I was available for consultation during this patient's emergency department encounter
[2018-04-02 14:54] LABS: Creatine Kinase 60 U/L (30-135)
[2018-04-02 15:13] LABS: Troponin I < 0.012 ng/mL (0.01-0.034)
[2018-04-02 15:25] LABS: Alanine Aminotransferase 48 IU/L (9-52); Albumin 4.5 g/dL (3.5-5.0); Albumin Globulin Ratio 1.6 (1.0-2.8); Alkaline Phosphatase 90 U/L (38-126); Aspartate Aminotransferase 38 IU/L (14-36); Bilirubin Total 0.9 mg/dL (0.2-1.3); Blood Urea Nitrogen 19 mg/dL (7-17); Calcium 9.9 mg/dL (8.4-10.2); Carbon Dioxide 28 mmol/L (22-32); Chloride 101 mmol/L (98-107); Estimated Glomerular Filt Rate 53.5 mL/min (>60); Globulin 2.9 g/dL (1.7-4.1); Glucose 98 mg/dL (80-110); HEMOLYSIS < 15 (0-50); Potassium 4.5 mmol/L (3.4-5.1); Sodium 140 mmol/L (137-145); Total Protein 7.4 g/dL (6.3-8.2)
--- NOTE | 2018-04-02 16:49 | PC.NURSE ---
pt ambulated to bathroom with steady gait, provider aware no new orders at this time.
[2018-04-02 17:15] LABS: Troponin I < 0.012 ng/mL (0.01-0.034)
--- NOTE | 2018-05-11 14:42 | PC.NURSE ---
late entry : NS stop time 04/02/18 @ 1544. 1000ml infused.
== END 2018-04-02 18:15 | disposition home or self-care (01) ==
PROVIDERS: Emergency Medicine; Emergency Provider Nurse Practitioner Family
DX: R55 Syncope and collapse (principal)
CPT/HCPCS: 36415; 36591; 70450; 71045; 80053; 81003; 82550; 83880; 84484; 85025; 85610; 93005; 93010; 96361; 96374; 99283; 99285; J2405